=== PATIENT | female | born 1940 | race Caucasian/White ===

== ENCOUNTER 2016-07-15 14:32 | Emergency (ER) | payer MEDICARE ==
[2016-07-15 15:47] LABS: Blood, Urine Large (Negative); Glucose, Urine (Dipstick) 100 mg/dL (Negative); Ketone, Urine Negative (Negative); Nitrite Positive (Negative); Protein, Urine (Dipstick) > or equal to 300 mg/dL (Neg-Trace)
[2016-07-15 15:58] LABS: Bilirubin Positive (Negative)
[2016-07-15 15:59] LABS: RBC/HPF 21-50 HPF (0-3); Squamous Epithelial 0-3 HPF (0-3)
[2016-07-15 16:00] LABS: Bacteria/HPF Rare-Few HPF (None Seen)
[2016-07-15] MEDS ORDERED: Nitrofurantoin Monohyd/M-Cryst 100 MG CAP ONE (16:14)
--- NOTE | 2016-07-15 17:21 | ERRECORD ---
[facility] EMERGENCY RECORD HPI UTI (14:47 WMEI) CHIEF COMPLAINT: Patient presents for evaluation of urinary tract infection signs or symptoms:, dysuria. HISTORIAN: History provided by patient, for 2 days urgeny occ incontinence. LOCATION: Symptoms are localized, most severe in the suprapubic region. TIME COURSE: Gradual onset of symptoms, 2, days priror to arrival. ASSOCIATED WITH FEMALE: No associated abdominal pain, No associated chills, No associated fever. EXACERBATED BY: Patient's condition exacerbated by urination. RELIEVED BY: Patient's condition relieved by nothing. ROS (14:48 WMEI) CONSTITUTIONAL: Historian denies chills, denies fever. EYES: Historian denies eye pain, denies eye discharge. ENT: Historian denies rhinorrhea, denies sore throat. CARDIOVASCULAR: Historian denies chest pain, no radiation. RESPIRATORY: Historian denies cough, denies shortness of breath. GI: Historian denies diarrhea, denies nausea, denies vomiting. GENITOURINARY FEMALE: Historian reports incontinence, reports urgency. MUSCULOSKELETAL: Historian denies back pain, denies joint swelling, denies myalgias. SKIN: Historian denies skin changes, denies skin lesions. NEUROLOGIC: Historian denies focal weakness, denies mental status changes. PSYCHIATRIC: Historian denies alcohol abuse, denies depression, denies drug abuse. PAST MEDICAL HISTORY (14:43 CTUR) MEDICAL HISTORY: Notes: RA; hypothyroidism; neuropathy, Flu vaccine up to date, Tetanus immunization up to date. verified 07/15/16. FEMALE SURGICAL HISTORY: back surgeries. PSYCHIATRIC HISTORY: No previous psychiatric history, no history of suicidal ideations, No history of suicide attempts, No history of hallucinations, No history of homicidal ideations. verified 07/15/16. SOCIAL HISTORY: Patient denies alcohol use, Patient denies drug use, Patient has no smoking history. verified 07/15/16. KNOWN ALLERGIES codeine sulfate CODIENE (Unconfirmed) heparin (bovine) HEPRIN (Unconfirmed) iodine morphine PCN (Unconfirmed) &a-1R&a+25V*p+0X*a6954L*c202B*c15G*c2P*p-0X&a-25V&a+1R Name: Myesha Garcia : 1940 F76 MedRec: [id number] AcctNum: [id number] Prepared: Jeimy Jul 15, 2016 22:01 by Interface Page 1 of 4 pMD [facility] EMERGENCY RECORD Penicillins shark cartilage: - Shark/EEL SULFA (Unconfirmed) Sulfa (Sulfonamide Antibiotics) CURRENT MEDICATIONS (15:11 CTUR) meloxicam: TABLET : Strength - 7.5 mg : ORAL Patient Dose: 15 mg Oral once a day. gabapentin: TABLET : Strength - 400 mg : ORAL Patient Dose: 400 mg Oral 2 times a day. amlodipine-benazepril: CAPSULE : Strength - 5 mg-20 mg : ORAL Patient Dose: 5/20 mg Oral once a day. levothyroxine: TABLET : Strength - 50 mcg : ORAL Patient Dose: 50 mcg Oral once a day. estradiol: TABLET : Strength - 1 mg : ORAL Patient Dose: 1 mg Oral once a day. folic acid: TABLET : Strength - 1 mg : ORAL Patient Dose: 1 mg Oral once a day. methotrexate: POWDER (GRAM) : MISCELLANEOUS Patient Dose: 2.5 mg Oral.6 TABS ONCE A WEEK. citalopram: TABLET : Strength - 20 mg : ORAL Patient Dose: 20 mg Oral once a day. Retin-A: CREAM (GRAM) : Strength - 0.05 % : TOPICAL Patient Dose: .05. VITAL SIGNS VITAL SIGNS: BP: 170/95, Pulse: 88, Resp: 18, Temp: 98.2 (Oral), Pain: 0, O2 sat: 97 on Room Air, Time: 07/15/2016 14:44. (14:44 CTUR) BP: 142/67, Pulse: 85, Resp: 16, Temp: 98.2 (Oral), Pain: 0, O2 sat: 97 on Room Air, Time: 07/15/2016 16:04. (16:04 CTUR) PHYSICAL EXAM (16:12 WMEI) CONSTITUTIONAL: Vital signs reviewed, Patient appears non toxic, Patient alert and oriented to person, place and time. HEAD: Head exam included findings of head atraumatic, normocephalic. EYES: Conjunctiva normal, Sclera normal. ENT: Ear exam normal, Nose exam normal. NECK: Neck exam included findings of normal range of motion, Trachea midline. RESPIRATORY CHEST: Breath sounds clear, Chest exam included &a-1R&a+25V*p+0X*y0483Q*c202B*c15G*c2P*p-0X&a-25V&a+1R Name: Myesha Garcia : 1940 F76 MedRec: [id number] AcctNum: [id number] Prepared: Jeimy Jul 15, 2016 22:01 by Interface Page 2 of 4 pMD [facility] EMERGENCY RECORD findings of chest movement symmetrical. CARDIOVASCULAR: Cardiovascular exam included findings of heart rate regular rate and rhythm, Heart sounds normal. ABDOMEN FEMALE: Abdominal exam included findings of abdomen tender, to the suprapubic region, mild intensity. BACK: Back exam included findings of normal inspection, Costovertebral angle tenderness, on the right. UPPER EXTREMITY: Upper extremity exam included findings of inspection normal, Range of motion normal, Motor strength normal. LOWER EXTREMITY: Lower extremity exam included findings of inspection normal, Range of motion normal, Motor strength normal. NEURO: [place] coma scale 15, Neuro exam findings include patient oriented to person, place and time, Speech normal, Gait normal. SKIN: Skin exam included findings of skin warm, dry, and normal in color. LYMPHATIC: Lymphatic exam normal. PSYCHIATRIC: Psychiatric exam included findings of patient oriented to person place and time, Normal affect, Judgment normal, Insight normal. MEDICATION ADMINISTRATION SUMMARY Drug Name: Macrodantin, Dose Ordered: 100 mg, Route: Oral, Status: Given, Time: 16:16 07/15/2016, Detailed record available in Medication Service section. PROBLEM LIST No recorded problems DIAGNOSIS (16:14 WMEI) FINAL: PRIMARY: UTI. PRESCRIPTION (16:12 WMEI) Macrodantin: CAPSULE : 100 mg : ORAL : Quantity: 1 Unit: cap(s) Route: ORAL Schedule: 2 times a day (before meals) Dispense: 14 Unit: cap(s) May substitute. Refills: No Refills . NOTES: No refills. Pyridium: TABLET : 100 mg : ORAL : Quantity: 1 Unit: tab(s) Route: ORAL Schedule: every 8 hours PRN Dispense: 15 Unit: tab(s) May substitute. Refills: No Refills . NOTES: ^s=No refills No refills. DISPOSITION PATIENT: Disposition Type: Discharge, Disposition: *Discharge Home. (16:14 WMEI) Patient left the department. (16:29 CTUR) &a-1R&a+25V*p+0X*f1332Y*c202B*c15G*c2P*p-0X&a-25V&a+1R Name: Myesha Garcia : 1940 F76 MedRec: [id number] AcctNum: [id number] Prepared: Jeimy Jul 15, 2016 22:01 by Interface Page 3 of 4 pMD [facility] EMERGENCY RECORD Do: CTUR=LENARD Griffin, Zainab WMEI=DO Stone William &a-1R&a+25V*p+0X*p7772V*c202B*c15G*c2P*p-0X&a-25V&a+1R Name: Myesha Garcia : 1940 F76 MedRec: [id number] AcctNum: [id number] Prepared: Jeimy Jul 15, 2016 22:01 by Interface Page 4 of 4 pMD MTDD
--- NOTE | 2016-07-15 17:23 | PICIS ---
[facility] EMERGENCY RECORD TRIAGE ([place] Jul 15, 2016 14:37 CTUR) TRIAGE NOTES: Patient states since saturday she has been experiencing her urine flowing from her bladder without her control and burning upon the start of these symptoms. ([place] Jul 15, 2016 14:37 CTUR) PATIENT: NAME: Myesha Garcia, AGE: 76, GENDER: female, : Jeimy 1940, TIME OF GREET: [place] Jul 15, 2016 14:33, PREFERRED LANGUAGE: Greek, ETHNICITY: Not or , ECODE BILLING MAP: [place], SSN: [id number], Zip Code: [address], KG WEIGHT: 63.5 (est.), PHONE: , , , PERSON ID: [id number], PAYMENT: [employer], PCP: DO MERINO KRISTEL. ([place] Jul 15, 2016 14:37 CTUR) COMPLAINT: Urinary symptoms. ([place] Jul 15, 2016 14:37 CTUR) ADMISSION: URGENCY: 4 Non Urgent, ADMISSION SOURCE: Home, TRANSPORT: CAR, BED: TRIAGE. ([place] Jul 15, 2016 14:37 CTUR) PROVIDERS: TRIAGE NURSE: Zainab Griffin RN. ([place] Jul 15, 2016 14:37 CTUR) PREVIOUS VISIT ALLERGIES: codeine sulfate, heparin (bovine), morphine, Penicillins, Sulfa (Sulfonamide Antibiotics). ([place] Jul 15, 2016 14:37 CTUR) codeine sulfate, heparin (bovine), morphine, Penicillins, Sulfa (Sulfonamide Antibiotics). (14:43 CTUR) KNOWN ALLERGIES codeine sulfate CODIENE (Unconfirmed) heparin (bovine) HEPRIN (Unconfirmed) iodine morphine PCN (Unconfirmed) Penicillins shark cartilage: - Shark/EEL SULFA (Unconfirmed) Sulfa (Sulfonamide Antibiotics) CURRENT MEDICATIONS (15:11 CTUR) meloxicam: TABLET : Strength - 7.5 mg : ORAL Patient Dose: 15 mg Oral once a day. gabapentin: TABLET : Strength - 400 mg : ORAL Patient Dose: 400 mg Oral 2 times a day. amlodipine-benazepril: CAPSULE : Strength - 5 mg-20 mg : ORAL Patient Dose: 5/20 mg Oral once a day. levothyroxine: TABLET : Strength - 50 mcg : ORAL Patient Dose: 50 mcg Oral once a day. estradiol: &a-1R&a+25V*p+0X*m2773R*c202B*c15G*c2P*p-0X&a-25V&a+1R Name: Myesha Garcia : 1940 F76 MedRec: [id number] AcctNum: [id number] Prepared: Jeimy Jul 15, 2016 22:07 by Interface Page [address] [facility] EMERGENCY RECORD TABLET : Strength - 1 mg : ORAL Patient Dose: 1 mg Oral once a day. folic acid: TABLET : Strength - 1 mg : ORAL Patient Dose: 1 mg Oral once a day. methotrexate: POWDER (GRAM) : MISCELLANEOUS Patient Dose: 2.5 mg Oral.6 TABS ONCE A WEEK. citalopram: TABLET : Strength - 20 mg : ORAL Patient Dose: 20 mg Oral once a day. Retin-A: CREAM (GRAM) : Strength - 0.05 % : TOPICAL Patient Dose: .05. VITAL SIGNS VITAL SIGNS: BP: 170/95, Pulse: 88, Resp: 18, Temp: 98.2 (Oral), Pain: 0, O2 sat: 97 on Room Air, Time: 07/15/2016 14:44. (14:44 CTUR) BP: 142/67, Pulse: 85, Resp: 16, Temp: 98.2 (Oral), Pain: 0, O2 sat: 97 on Room Air, Time: 07/15/2016 16:04. (16:04 CTUR) NURSING ASSESSMENT: GENITOURINARY (14:44 CTUR) CONSTITUTIONAL: Complex assessment performed, Patient arrives ambulatory, Gait steady, History obtained from patient, Patient appears comfortable, Patient cooperative, Patient alert, Oriented to person, place and time, Skin warm, Skin dry, Skin normal in color, Mucous membranes pink, Mucous membranes moist, Patient complains of Dysuria/Stress Incontenece, Pt reports she can not control her urine since Saturday, she reports she feels the urgency and when she begins to walk "it just starts running down my leg", pt states "I have soaked and entire box of pads since Saturday". Pt reports when this begins she also experiences burning sensation. NONVERBAL PAIN: Non-Verbal pain assessment findings include: No non-verbal complaints while at rest (0), Non-Verbal complaints not present with movement (0), Facial Grimaces not present at rest (0), Facial grimaces not present with movement (0), Bracing not present at rest (0), Bracing not present with movement (0), Restlessness not present at rest (0), Restlessness not present with movement (0), Rubbing not present at rest (0), Rubbing not present with movement (0), Result: 0. GENITOURINARY FEMALE: Associated with urinary complaints, burning, Date and time of last void: 07/15/2016 14:46, pt in restroom at this time due to urgency and needing to collect specimen. ABDOMEN: Abdomen assessment findings include abdomen symmetrical, Abdomen soft. SAFETY: Side rails up, Cart/Stretcher in lowest position, Call light within reach, Hospital ID band on. NURSING PROCEDURE: NURSE NOTES (15:13 CTUR) &a-1R&a+25V*p+0X*r7663X*c202B*c15G*c2P*p-0X&a-25V&a+1R Name: Myesha Garcia : 1940 F76 MedRec: [id number] AcctNum: [id number] Prepared: Jeimy Jul 15, 2016 22:07 by Interface Page [address] [facility] EMERGENCY RECORD NURSES NOTES: Notes: Patient attempted to urinate for fifteen minutes due to the feeling she needed to urinate but was unable to provide a sample. Pt assisted back to the bed. Pt denies needs at this time, new pad provided per pt request. NURSING PROCEDURE: URINE COLLECTION (15:45 CTUR) PATIENT IDENTIFIER: Patient actively involved in identification process, Patient's identity verified by patient stating name, Patient's identity verified by patient stating date, Patient's identity verified by hospital ID bracelet. URINE COLLECTION FEMALE: Urine collected by straight cath, using an 8fr catheter kit, in one attempt, output amount (mL) 2, urine yellow in color, and cloudy, Specimen collected, labeled in the presence of the patient and sent to lab, Specimen obtained for culture labeled in the presence of the patient and sent to lab. SAFETY: Side rails up, Cart/Stretcher in lowest position, Call light within reach, Hospital ID band on. ORDER DETAILS Order Name: Culture, Urine, Status: Active, Time: 16:02 07/15/2016, User: CARIDAD, - Ordered for: DO Stone William, - Entered by: DO Stone William - [place] Jul 15, 2016 16:02, - Quantity: 1, Order Name: Urinalysis with Microscopic, Status: Active, Time: 14:44 07/15/2016, User: CARIDAD, - Ordered for: DO Stone William, - Entered by: DO Stone William - [place] Jul 15, 2016 14:44, - Quantity: 1. MEDICATION ADMINISTRATION SUMMARY Drug Name: Macrodantin, Dose Ordered: 100 mg, Route: Oral, Status: Given, Time: 16:16 07/15/2016, Detailed record available in Medication Service section. MEDICATION SERVICE (16:16 WMEI) Macrodantin: Order: Macrodantin (nitrofurantoin macrocrystal) - Dose: 100 mg : Oral Schedule: Now Ordered by: Jacobo Stone DO Entered by: DO Jeimy Crawford Jul 15, 2016 16:11 , Acknowledged by: LENARD Hernandez Jul 15, 2016 16:11 Documented as given by: LENARD Kirk Jul 15, 2016 16:16 Patient, Medication, Dose, Route and Time verified prior to administration. Amount given: 100mg, Site: Medication administered P.O., Correct patient, time, route, dose and medication confirmed prior to administration, Patient advised of actions and side-effects prior to &a-1R&a+25V*p+0X*z8495G*c202B*c15G*c2P*p-0X&a-25V&a+1R Name: Myesha Garcia : 1940 F76 MedRec: [id number] AcctNum: [id number] Prepared: Jeimy Jul 15, 2016 22:07 by Interface Page [address] [facility] EMERGENCY RECORD administration, Allergies confirmed and medications reviewed prior to administration, Patient in position of comfort, Side rails up, Cart in lowest position. HPI UTI (14:47 WMEI) CHIEF COMPLAINT: Patient presents for evaluation of urinary tract infection signs or symptoms:, dysuria. HISTORIAN: History provided by patient, for 2 days urgeny occ incontinence. LOCATION: Symptoms are localized, most severe in the suprapubic region. TIME COURSE: Gradual onset of symptoms, 2, days priror to arrival. ASSOCIATED WITH FEMALE: No associated abdominal pain, No associated chills, No associated fever. EXACERBATED BY: Patient's condition exacerbated by urination. RELIEVED BY: Patient's condition relieved by nothing. ROS (14:48 WMEI) CONSTITUTIONAL: Historian denies chills, denies fever. EYES: Historian denies eye pain, denies eye discharge. ENT: Historian denies rhinorrhea, denies sore throat. CARDIOVASCULAR: Historian denies chest pain, no radiation. RESPIRATORY: Historian denies cough, denies shortness of breath. GI: Historian denies diarrhea, denies nausea, denies vomiting. GENITOURINARY FEMALE: Historian reports incontinence, reports urgency. MUSCULOSKELETAL: Historian denies back pain, denies joint swelling, denies myalgias. SKIN: Historian denies skin changes, denies skin lesions. NEUROLOGIC: Historian denies focal weakness, denies mental status changes. PSYCHIATRIC: Historian denies alcohol abuse, denies depression, denies drug abuse. PAST MEDICAL HISTORY (14:43 CTUR) MEDICAL HISTORY: Notes: RA; hypothyroidism; neuropathy, Flu vaccine up to date, Tetanus immunization up to date. verified 07/15/16. FEMALE SURGICAL HISTORY: back surgeries. PSYCHIATRIC HISTORY: No previous psychiatric history, no history of suicidal ideations, No history of suicide attempts, No history of hallucinations, No history of homicidal ideations. verified 07/15/16. SOCIAL HISTORY: Patient denies alcohol use, Patient denies drug use, Patient has no smoking history. verified 07/15/16. PHYSICAL EXAM (16:12 WMEI) CONSTITUTIONAL: Vital signs reviewed, Patient appears non toxic, Patient alert and oriented to person, place and time. HEAD: Head exam included findings of head atraumatic, &a-1R&a+25V*p+0X*c5347Q*c202B*c15G*c2P*p-0X&a-25V&a+1R Name: Myesha Garcia : 1940 F76 MedRec: [id number] AcctNum: [id number] Prepared: Jeimy Jul 15, 2016 22:07 by Interface Page [address] [facility] EMERGENCY RECORD normocephalic. EYES: Conjunctiva normal, Sclera normal. ENT: Ear exam normal, Nose exam normal. NECK: Neck exam included findings of normal range of motion, Trachea midline. RESPIRATORY CHEST: Breath sounds clear, Chest exam included findings of chest movement symmetrical. CARDIOVASCULAR: Cardiovascular exam included findings of heart rate regular rate and rhythm, Heart sounds normal. ABDOMEN FEMALE: Abdominal exam included findings of abdomen tender, to the suprapubic region, mild intensity. BACK: Back exam included findings of normal inspection, Costovertebral angle tenderness, on the right. UPPER EXTREMITY: Upper extremity exam included findings of inspection normal, Range of motion normal, Motor strength normal. LOWER EXTREMITY: Lower extremity exam included findings of inspection normal, Range of motion normal, Motor strength normal. NEURO: [place] coma scale 15, Neuro exam findings include patient oriented to person, place and time, Speech normal, Gait normal. SKIN: Skin exam included findings of skin warm, dry, and normal in color. LYMPHATIC: Lymphatic exam normal. PSYCHIATRIC: Psychiatric exam included findings of patient oriented to person place and time, Normal affect, Judgment normal, Insight normal. EVENTS TRANSFER: Triage to Emergency Triage. (Jeimy Jul 15, 2016 14:37 CTUR) Emergency Triage to Emergency Room -04. (14:37 CTUR) Removed from Emergency Emergency Room -04. (16:29 CTUR) PROBLEM LIST No recorded problems DIAGNOSIS (16:14 WMEI) FINAL: PRIMARY: UTI. DISPOSITION PATIENT: Disposition Type: Discharge, Disposition: *Discharge Home. (16:14 WMEI) Patient left the department. (16:29 CTUR) INSTRUCTION (16:14 WMEI) DISCHARGE: UTI CYSTITIS FEMALE ADULT. FOLLOWUP: DO MERINO KRISTEL, [facility], [address] [place] [id number], [id number]. SPECIAL: Follow-up with your PCP. &a-1R&a+25V*p+0X*p2347R*c202B*c15G*c2P*p-0X&a-25V&a+1R Name: Myesha Garcia : 1940 F76 MedRec: [id number] AcctNum: [id number] Prepared: Jeimy Jul 15, 2016 22:07 by Interface Page [address] [facility] EMERGENCY RECORD PRESCRIPTION (16:12 WMEI) Macrodantin: CAPSULE : 100 mg : ORAL : Quantity: 1 Unit: cap(s) Route: ORAL Schedule: 2 times a day (before meals) Dispense: 14 Unit: cap(s) May substitute. Refills: No Refills . NOTES: No refills. Pyridium: TABLET : 100 mg : ORAL : Quantity: 1 Unit: tab(s) Route: ORAL Schedule: every 8 hours PRN Dispense: 15 Unit: tab(s) May substitute. Refills: No Refills . NOTES: ^s=No refills No refills. IMAGING (16:24 LGIB) *DISCHARGE INSTRUCTIONS RECEIPT: Image captured from scanner. *SUPPLY CHARGE SHEET: Image captured from scanner. ADMIN (21:55 WMEI) DIGITAL SIGNATURE: DO Stone William. Do: CTUR=LENARD Griffin, Zainab LGIB=LENARD Chaidez, Ashlyn WMEI=DO Stone William &a-1R&a+25V*p+0X*v5404F*c202B*c15G*c2P*p-0X&a-25V&a+1R Name: Meysha Garcia Alejandro : 1940 F76 MedRec: [id number] AcctNum: [id number] Prepared: Jeimy Jul 15, 2016 22:07 by Interface Page 6 of 6 pMD MTDD
== END 2016-07-15 16:20 | disposition home or self-care (01) ==
LOC: BURERS 14:32
DX: N39.0 Urinary tract infection, site not specified (principal); M06.9 Rheumatoid arthritis, unspecified; E03.9 Hypothyroidism, unspecified
CPT/HCPCS: 81001; 87077; 87086; 87186; A4353

== ENCOUNTER 2016-07-18 11:29 | Outpatient (CLI) | payer MEDICARE ==
[2016-07-18 12:40] LABS: #Basophils 0.1 thou/uL (0.0-0.2); #Eosinphils 0.3 thou/uL (0.0-0.7); #Lymphocytes 1.8 thou/uL (1.20-3.40); #Monocytes 0.6 thou/uL (0.11-0.59); #Neutrophils 4.2 thou/uL (1.40-6.50); %Eosinophils 4.8 % (0.0-10.0); %Monocytes 9.2 % (0.0-10.0); Hematocrit 42.7 % (36.0-47.0); Mean Platelet Volume 6.7 fL (7.4-10.4); Red Blood Cell (RBC) Count 4.26 mill/uL (4.20-5.40)
[2016-07-18 12:42] LABS: ALT (SGPT) 12 U/L (0-55); AST (SGOT) 20 U/L (5-34); Alkaline Phosphatase 64 U/L (40-150); Anion Gap 15 mmol/L (10-20); BUN (Urea Nitrogen) 16 mg/dL (9.8-20.1); Bilirubin, Total 0.6 mg/dL (0.2-1.2); Calc. Creatinine Clearance 0 mL/min (70-130); Calcium 9.7 mg/dL (7.8-10.44); Carbon Dioxide 25 mmol/L (23-31); Chloride 107 mmol/L (98-107); Estimated GFR-MDRD 70; Globulin 2.6 g/dL (2.4-3.5); LDL Cholesterol, Calculated 123 mg/dL; Protein, Total 6.8 g/dL (5.8-8.1)
== END 2016-07-18 11:30 | disposition home or self-care (01) ==
LOC: HPCALD 11:29
PROVIDERS: ATTEND Family Medicine
DX: I10 Essential (primary) hypertension (principal); E03.9 Hypothyroidism, unspecified
CPT/HCPCS: 36415; 80053; 80061; 84443; 85025

== ENCOUNTER 2016-07-20 14:08 | Outpatient (CLI) | payer MEDICARE ==
--- NOTE | 2016-07-20 18:55 | RAD ---
LEFT KNEE 4 VIEWS: Date: 07/20/16 FINDINGS: Osteoarthritis is present consisting of very prominent medial joint space narrowing and lesser later al joint space narrowing. There are also osteophytes and bony sclerosis. A little bit of meniscal ca lcification is evident. No fracture seen. There is probably a small amount of joint fluid. Osteophyt es are seen in the knee joint and patellofemoral joint. IMPRESSION: Arthritic changes as noted. POS: HOME
== END 2016-07-20 14:09 | disposition home or self-care (01) ==
LOC: BURRAD 14:08
PROVIDERS: ATTEND Family Medicine
DX: M25.562 Pain in left knee (principal); M17.12 Unilateral primary osteoarthritis, left knee

== ENCOUNTER 2017-03-13 12:09 | Outpatient (CLI) | payer MEDICARE ==
[2017-03-13 19:07] LABS: Syphilis Antibody Non-Reactive (NonReactive); Syphilis Antibody Index 0.09 S/CO (<1.00 Non-Reactive)
== END 2017-03-13 12:10 | disposition home or self-care (01) ==
LOC: HPCALD 12:09
PROVIDERS: ATTEND Family Medicine
DX: E03.9 Hypothyroidism, unspecified (principal); G93.41 Metabolic encephalopathy; N30.00 Acute cystitis without hematuria; R41.82 Altered mental status, unspecified
CPT/HCPCS: 36415; 82607; 84443; 86780; 87077; 87086

== ENCOUNTER 2017-07-09 15:11 | Emergency (ER) | payer MEDICARE | END 2017-07-09 16:08 | disposition home or self-care (01) | LOC: BURERS 15:11 | DX: J01.90 Acute sinusitis, unspecified (principal); H10.9 Unspecified conjunctivitis; E03.9 Hypothyroidism, unspecified; M06.9 Rheumatoid arthritis, unspecified | CPT/HCPCS: 99283 ==

== ENCOUNTER 2018-09-18 03:49 | Emergency (ER) | payer MEDICARE ==
[2018-09-18] MEDS ORDERED: Magnesium Citrate 300 ML BOT ONE (04:15)
== END 2018-09-18 04:25 | disposition home or self-care (01) ==
LOC: BURERS 03:49
DX: K59.00 Constipation, unspecified (principal)
CPT/HCPCS: 99281